=== PATIENT | female | born 1995 | race Caucasian/White ===

== ENCOUNTER → 2017-12-20 | Outpatient (CLI) | payer BC ==
[~2017-12-20] MED LIST: ATARAX 25MG25 MG/TAB PO; IBU800 M1 PO; MOTRIN 800800 MG/TAB PO; MULTIPLE VITAMI1 CAP PO; PRENATAL MVI; PROAIR HFA0.09 MG/AC IH; VIIBRYD10 MG PO; WELLBUTRIN 100100 MG PO
== END ==
LOC: MC.RAD 12:59
DX: N63.13 Unspecified lump in the right breast, lower outer quadrant (principal)

== ENCOUNTER 2021-09-26 08:52 | Emergency (ER) | payer OTHER, BC ==
[~2021-09-26] VITALS: Ht 154.9 cm; Wt 68.6 kg
[2021-09-26 08:59] VITALS: BP 138/92; PULSE 69; TEMP 98
[2021-09-26] MEDS ORDERED: NORCO 325 MG-51 TAB PO (11:03)
[2021-09-26] MEDS ORDERED: ZOFRAN ODT4 MG PO (11:03)
== END 2021-09-26 11:15 | disposition home or self-care (01) ==
LOC: COL.ER 08:52
DX: S09.90XA Unspecified injury of head, initial encounter (principal); S33.5XXA Sprain of ligaments of lumbar spine, initial encounter; S13.4XXA Sprain of ligaments of cervical spine, initial encounter; V89.2XXA Person injured in unspecified motor-vehicle accident, traffic, initial encounter